=== PATIENT | male | born 1955 | race Caucasian/White ===

== ENCOUNTER 2023-11-10 20:18 | Observation (INO) ==
[2023-11-10] MEDS ORDERED: ZOFRAN INJ 4 MG VIAL IVP PRN (20:24)
[2023-11-10 21:10] LABS: BASOPHILS % (AUTO) 0.3 % (0.2-1.0); EOSINOPHILS # (AUTO) 0.3 x10^3/uL (0.0-0.2); EOSINOPHILS % (AUTO) 2.9 % (0.9-2.9); HEMATOCRIT 47.9 % (42.0-54.0); HEMOGLOBIN 16.3 g/dL (13.5-18.0); LYMPHOCYTES # (AUTO) 1.5 X10^3/uL (1.3-2.9); LYMPHOCYTES % (AUTO) 13.4 % (21.0-51.0); MEAN CORPUSCULAR HEMOGLOBIN 31.1 pg (27.0-34.0); MEAN CORPUSCULAR HGB CONC 34.1 g/dL (33.0-35.0); MEAN CORPUSCULAR VOLUME 91.4 fL (80.0-100.0); MEAN PLATELET VOLUME 8.5 fL (7.4-11.0); MONOCYTES # (AUTO) 0.7 x10^3/uL (0.3-0.8); NEUTROPHILS # (AUTO) 8.9 x10^3/uL (2.2-4.8); NEUTROPHILS % (AUTO) 77.4 % (42.0-75.0); PLATELET COUNT 181 X10^3/uL (150.0-450.0); RED BLOOD COUNT 5.24 X10^6/uL (4.7-6.0); RED CELL DISTRIBUTION WIDTH 13.4 % (11.6-16.5); WHITE BLOOD COUNT 11.5 X10^3/uL (3.6-10.0)
[2023-11-10 21:19] LABS: ALANINE AMINOTRANSFERASE 25 Units/L (12-78); ALBUMIN 3.7 g/dL (3.4-5.0); ALKALINE PHOSPHATASE 94 Units/L (46-116); ASPARTATE AMINO TRANSFERASE 15 Units/L (15-37); BLOOD UREA NITROGEN 25 mg/dL (7-18); CALCIUM 9.3 mg/dL (8.5-10.1); CARBON DIOXIDE 29.7 mmol/L (21-32); CHLORIDE 103 mmol/L (98-107); CREATININE 1.08 mg/dL (0.70-1.30); GLUCOSE 105 mg/dL (65-99); POTASSIUM 3.8 mmol/L (3.5-5.1); SODIUM 139 mmol/L (136-145); eGFR NON BLACK RACES > 60 (>60)
--- NOTE | 2023-11-10 21:42 | RAD ---
EXAM:CHEST, PA/LAT ADULTHISTORY:Intractable Flank Pain;COMPARISON:Report only from November 16, 2020TECHNIQUE:PA and lateral projections, 2 imagesFINDINGS:Cardiac silhouette is normal in size and configuration.Pulmonary vascular sizes are normal.No effusion.No focal airspace disease.No pneumothorax.No acute osseous abnormalityIMPRESSION:No imaging findings of acute cardiopulmonary disease.THIS IS AN ELECTRONICALLY VERIFIED FINAL REPORT11/10/2023 9:39 PM - Electronically signed by Dipesh Mcmullen MD
[2023-11-10] MEDS: TORADOL 30 MG VIAL IVP ONE (22:11)
[2023-11-10] MEDS: DILAUDID INJ IVP ONE (22:12)
[2023-11-10] MEDS: NS 250 ML IV 250 ML IV ONE (22:12)
[2023-11-10] MEDS: ROCEPHIN VIAL 1 GRAM 1 G in NS 100 ML IV 100 ML IV SCH (22:12)
[2023-11-10] MEDS: TORADOL 30 MG VIAL IVP PRN (23:03)
[2023-11-10 23:47] VITALS: BMI 31.2
[2023-11-11] MEDS ORDERED: NORCO 5/325 MG TAB PO PRN (00:06)
[2023-11-11] MEDS ORDERED: MAALOX or MYLANTA PO PRN (00:06)
[2023-11-11 01:56] LABS: BILIRUBIN,URINE 1+ (NEGATIVE); BLOOD/HEMOGLOBIN,URINE 5+ (NEGATIVE); GLUCOSE, URINE NEGATIVE (NEGATIVE); KETONES,URINE 1+ (NEGATIVE); LEUKOCYTE ESTERASE ,URINE 2+ (NEGATIVE); NITRITES,URINE NEGATIVE (NEGATIVE); PROTEIN,URINE 3+ (NEGATIVE); UROBILINOGEN,URINE 1+ (NORMAL)
[2023-11-11 02:08] LABS: APPEARANCE,URINE CLOUDY (CLEAR); COLOR,URINE AMBER (YELLOW)
[2023-11-11 02:09] LABS: BACTERIA,URINE TRACE /HPF (NEGATIVE); CALCIUM OXALATE CRYSTALS,UR MODERATE /HPF (NEGATIVE); RBC,URINE TNTC /HPF (0-3); SQUAMOUS EPITHELIAL CELL,UR RARE /HPF (NEGATIVE)
[2023-11-11] MEDS: DILAUDID INJ IVP PRN (02:53)
[2023-11-11 06:15] LABS: BASOPHILS % (AUTO) 0.4 % (0.2-1.0); EOSINOPHILS # (AUTO) 0.4 x10^3/uL (0.0-0.2); EOSINOPHILS % (AUTO) 4.5 % (0.9-2.9); HEMATOCRIT 44.1 % (42.0-54.0); LYMPHOCYTES # (AUTO) 2.4 X10^3/uL (1.3-2.9); LYMPHOCYTES % (AUTO) 25.9 % (21.0-51.0); MEAN CORPUSCULAR HEMOGLOBIN 31.1 pg (27.0-34.0); MEAN CORPUSCULAR HGB CONC 34.1 g/dL (33.0-35.0); MEAN CORPUSCULAR VOLUME 91.3 fL (80.0-100.0); MEAN PLATELET VOLUME 8.5 fL (7.4-11.0); MONOCYTES # (AUTO) 0.8 x10^3/uL (0.3-0.8); MONOCYTES % (AUTO) 9.1 % (0.0-13.0); NEUTROPHILS # (AUTO) 5.5 x10^3/uL (2.2-4.8); NEUTROPHILS % (AUTO) 60.1 % (42.0-75.0); PLATELET COUNT 172 X10^3/uL (150.0-450.0); RED BLOOD COUNT 4.83 X10^6/uL (4.7-6.0); RED CELL DISTRIBUTION WIDTH 13.1 % (11.6-16.5); WHITE BLOOD COUNT 9.1 X10^3/uL (3.6-10.0)
[2023-11-11 06:34] LABS: ALANINE AMINOTRANSFERASE 23 Units/L (12-78); ALBUMIN 3.3 g/dL (3.4-5.0); ALKALINE PHOSPHATASE 90 Units/L (46-116); ASPARTATE AMINO TRANSFERASE 15 Units/L (15-37); BLOOD UREA NITROGEN 27 mg/dL (7-18); CALCIUM 8.6 mg/dL (8.5-10.1); CARBON DIOXIDE 30.2 mmol/L (21-32); CHLORIDE 103 mmol/L (98-107); COR CA(FOR HYPOALB) 9.2 mg/dL (8.5-10.1); GLUCOSE 92 mg/dL (65-99); MAGNESIUM 1.9 mg/dL (2.0-2.9); POTASSIUM 3.8 mmol/L (3.5-5.1); SODIUM 138 mmol/L (136-145); TOTAL PROTEIN 6.1 g/dL (6.4-8.2); eGFR NON BLACK RACES > 60 (>60)
--- NOTE | 2023-11-11 06:36 | CT ---
EXAM:ABDOMEN/PELVIS W/O CONHISTORY:INTRACTABLE FLANK PAIN; FL, COPD, KIDNEY STONES SX: CHOLECOMPARISON:NoneTECHNIQUE:CT of the abdomen and pelvis obtained without IV contrast. Study limited due to lack of IV contrast. Dose reduction techniques including Automated Exposure Control (AEC) and adjustment of mA and kV were utilized.FINDINGS:The visualized portions of the lower thorax demonstrate no acute process. Coronary calcifications.No acute osseous abnormality. Multilevel degenerative changes in the visualized spine.The liver, gallbladder, spleen, pancreas, bilateral adrenal glands, and right kidney demonstrate no acute process given lack of IV contrast. Cholelithiasis. Obstructing 0.7 cm left UVJ stone with moderate left hydronephrosis. Additional nonobstructing left nephrolithiasis. Bilateral adrenal adenomas measuring up to 2.4 cm on the right and 2.4 cm on the left.No evidence of bowel obstruction. The appendix is unremarkable. Prior mesh repair in the anterior abdomen.The bladder is unremarkable. Prominent prostate. No free air or fluid. Nonaneurysmal aorta. Scattered vascular calcifications.IMPRESSION:Obstructing 0.7 cm left UVJ stone with moderate left hydronephrosis. Additional nonobstructing left nephrolithiasis.Cholelithiasis. The gallbladder is present.THIS IS AN ELECTRONICALLY VERIFIED FINAL REPORT11/11/2023 6:33 AM - Electronically signed by Carlos Dozier MD
[2023-11-11] MEDS: LASIX PO SCH (10:10)
[2023-11-11 11:08] VITALS: BP 163/80; PULSE 65; TEMP 97.8; O2SAT 96
[2023-11-11 11:27] VITALS: RESP 16
[2023-11-11] MEDS ORDERED: LIPITOR TAB 80 MG PO SCH (21:00)
== END 2023-11-11 11:30 | disposition short-term general hospital (02) ==
LOC: MED/SURG
PROVIDERS: ADMIT Internal Medicine; ATTEND Internal Medicine
DX: R10.84 Generalized abdominal pain; R31.9 Hematuria, unspecified; N13.6 Pyonephrosis; K80.80 Other cholelithiasis without obstruction; I25.10 Atherosclerotic heart disease of native coronary artery without angina pectoris; N39.0 Urinary tract infection, site not specified; E78.5 Hyperlipidemia, unspecified; Z59.41 Food insecurity; N40.1 Benign prostatic hyperplasia with lower urinary tract symptoms; I10 Essential (primary) hypertension; E83.42 Hypomagnesemia; J44.9 Chronic obstructive pulmonary disease, unspecified